=== PATIENT | female | born 1955 | race Caucasian/White ===

== ENCOUNTER 2025-03-03 07:39 | Outpatient (CLI) | payer MEDICARE ==
--- NOTE | 2025-03-03 09:08 | RADIOLOGY REPORT ---
EXAM: CT CT CHEST LOW DOSE HISTORY: CPT [id number] LOW-DOSE [facility] CANCER SCREENING COMPARISON: None TECHNIQUE: Noncontrast helical CT images of the chest were performed utilizing low dose lung cancer s creening protocol. Sagittal and coronal reformatted images were obtained. This CT exam was performed using one or more of the following dose reduction techniques: Automated exposure control, adjustment of the mA and/or kV according to patient size, or use of iterative reconstruction technique. Radiation Dose: CT Dose: CTDI volume is 2.8 mGy. Dose-length product is 94.78 mGy*cm FINDINGS: There are multiple noncalcified pulmonary nodules and tree-in-bud opacities in both lungs, with the largest noncalcified nodules measuring 3.5 mm in the right lower lobe (image 134, series 2) and 5.6 mm in the right upper lobe (image 107, series 2). There is peribronchial thickening. There i s mild centrilobular emphysema of the upper lobes. No consolidative infiltrates, pneumothorax, pleura l effusions, or pulmonary edema. No suspicious mediastinal or axillary adenopathy. The heart is not e nlarged. There are coronary artery calcifications. No thoracic aortic aneurysm. There is kvtq-to-uthr rate thoracic degenerative disc disease. There may be chronic superior endplate compression fracture s of T2 and T6 versus appearance due to schmorl's nodes. IMPRESSION: 1. Multiple subcentimeter noncalcified pulmonary nodules and tree-in-bud opacities in both lungs, whi ch may be due to inflammatory or infectious etiology versus reactive airways disease or other small a irways disease, less likely neoplastic etiology. 2. Mild emphysema. 3. Coronary artery disease. Lung-RADS 3. Probably benign. Recommend follow-up LDCT in 6 months. Lung-RADS [id number].
== END 2025-03-03 23:59 | disposition home or self-care (01) ==
LOC: RAD 07:39
PROVIDERS: ATTEND Nurse Practitioner Family
DX: Z12.2 Encounter for screening for malignant neoplasm of respiratory organs (principal); J43.2 Centrilobular emphysema; Z87.891 Personal history of nicotine dependence; M51.44 Schmorl's nodes, thoracic region; R91.8 Other nonspecific abnormal finding of lung field; M51.34 Other intervertebral disc degeneration, thoracic region
CPT/HCPCS: 71271